=== PATIENT | female | born 1975 | race Asian ===

== ENCOUNTER → 2020-11-09 | Outpatient (CLI) | payer OTHER | LOC: INF 15:15 | PROVIDERS: ATTEND Internal Medicine | DX: Z23 Encounter for immunization (principal) | CPT/HCPCS: 96372 ==

== ENCOUNTER 2020-12-03 09:16 | Outpatient (CLI) | payer OTHER | END 2020-12-03 23:59 | disposition home or self-care (01) | LOC: INF 09:16 | PROVIDERS: ATTEND Internal Medicine | DX: Z23 Encounter for immunization (principal) | CPT/HCPCS: 96372 ==